=== PATIENT | female | born 1995 | race African-American/Black ===

== ENCOUNTER 2021-03-02 16:00 | Inpatient (IN) | payer OTHER ==
[2021-03-02 18:19] VITALS: BMI 49.4
[2021-03-02] MEDS ORDERED: BISMUTH SUBSALICYLATE 524 MG/30 ML PO PRN (23:14)
[2021-03-02] MEDS ORDERED: cloNIDine HCL 0.1 MG TABLET PO PRN (23:14)
[2021-03-02] MEDS ORDERED: ACETAMINOPHEN 325 MG TABLET (FP) PO PRN (23:14)
[2021-03-02] MEDS ORDERED: MAGNESIUM HYDROX 2400MG/30ML ORAL SUSPENSION 30 ML CUP PO PRN (23:14)
[2021-03-02] MEDS ORDERED: ONDANSETRON *ODT* 4 MG TABLET SL PRN (23:14)
[2021-03-02] MEDS ORDERED: NICOTINE POLACRILEX 2 MG GUM BUC PRN (23:14)
[2021-03-02] MEDS ORDERED: MENTHOL/PHENOL 1 EACH UD MM PRN (23:14)
[2021-03-02] MEDS ORDERED: MAG HYDROX/AL HYDROX/SIMETH 30 ML UNIT-DOSE CUP PO PRN (23:14)
[2021-03-02] MEDS ORDERED: MAGNESIUM CITRATE 300 ML BOTTLE PO PRN (23:14)
[2021-03-02] MEDS ORDERED: METHADONE HCL 10 MG TABLET (FOR DETOX USE ONLY) PO ONE (23:14)
[2021-03-03] MEDS: hydrOXYzine PAMOATE 25 MG CAPSULE (FP) PO SCH ×5 (05:35→22:37)
[2021-03-03] MEDS ORDERED: ALBUTEROL SO4 HFA INHALER IH PRN (09:31)
[2021-03-03] MEDS ORDERED: METHADONE HCL 5 MG TABLET (FOR DETOX USE ONLY) ONE (09:53)
[2021-03-03] MEDS ORDERED: METHADONE HCL 10 MG TABLET (FOR DETOX USE ONLY) ONE (09:53)
[2021-03-03] MEDS ORDERED: METHADONE (DETOX) 20 MG, METHADONE (DETOX) 5 MG PO ONE (10:00)
[2021-03-03] MEDS ORDERED: amLODIPine BESYLATE 5 MG TABLET (FP) PO SCH (10:00)
[2021-03-03] MEDS: SPIRONOLACTONE 25 MG TABLET PO SCH ×2 (10:44→22:37)
[2021-03-03] MEDS: DOCUSATE SODIUM 100 MG CAPSULE (FP) PO SCH (10:44)
[2021-03-03] MEDS: PRENATAL VITAMINS W/ FOLIC ACID TABLET (FP) PO SCH (10:44)
[2021-03-03] MEDS: METHOCARBAMOL 500 MG TABLET PO PRN ×2 (10:44→22:44)
[2021-03-03] MEDS: DULoxetine HCL 60 MG CAPSULE.DR PO SCH (15:01)
[2021-03-03] MEDS: MELATONIN 5 MG TABLETS PO SCH (22:37)
[2021-03-03] MEDS: THIAMINE HCL 100 MG TABLET (FP) PO SCH (22:37)
[2021-03-03] MEDS: QUEtiapine FUMARATE 50 MG TABLET PO SCH (22:37)
[2021-03-03] MEDS: MONTELUKAST NA 10 MG TABLET PO SCH (22:39)
[2021-03-04] MEDS: hydrOXYzine PAMOATE 25 MG CAPSULE (FP) PO SCH ×5 (06:13→22:22)
[2021-03-04] MEDS ORDERED: ATORVASTATIN PO SCH (10:00)
[2021-03-04] MEDS ORDERED: AMLODIPINE PO SCH (10:00)
[2021-03-04] MEDS ORDERED: [UNRECOGNIZED DRUG - OTHER] PO SCH (10:00)
[2021-03-04] MEDS ORDERED: amLODIPine BESYLATE 5 MG TABLET (FP) PO SCH (10:00)
[2021-03-04] MEDS ORDERED: METHADONE HCL 10 MG TABLET (FOR DETOX USE ONLY) PO ONE (10:00)
[2021-03-04] MEDS ORDERED: ATORVASTATIN CA 20 MG TABLET (FP) PO SCH (10:00)
[2021-03-04] MEDS: PRENATAL VITAMINS W/ FOLIC ACID TABLET (FP) PO SCH (10:36)
[2021-03-04] MEDS: DOCUSATE SODIUM 100 MG CAPSULE (FP) PO SCH (10:37)
[2021-03-04] MEDS: DULoxetine HCL 60 MG CAPSULE.DR PO SCH (10:37)
[2021-03-04] MEDS: PATIENT'S OWN MEDICATION (NON-FORMULARY) (Amlodipine Besylate/Benazepril [Amlodipine-Benaz PO SCH (10:37)
[2021-03-04] MEDS: SPIRONOLACTONE 25 MG TABLET PO SCH ×2 (10:37→22:21)
[2021-03-04] MEDS: METHOCARBAMOL 500 MG TABLET PO PRN ×2 (10:37→22:27)
[2021-03-04 11:08] LABS: HEMOGLOBIN 11.4 GM/dL (10.7-15.3); MCH 24.5 pg (25.7-33.7); MCHC 31.7 g/dl (32.0-36.0); MEAN CELL VOLUME 77.2 fl (80-96); MEAN PLT VOLUME 8.1 fl (7.5-11.1); PLATELET COUNT 387 10^3/uL (134-434); RBC 4.66 M/mm3 (3.60-5.2); WHITE BLOOD COUNT 8.4 K/mm3 (4.0-10.0)
[2021-03-04 11:15] LABS: ALBUMIN 3.5 g/dl (3.4-5.0); BLOOD UREA NITROGEN 11.2 mg/dL (7-18); CALCIUM 9.4 mg/dL (8.5-10.1)
[2021-03-04 11:19] LABS: CREATININE 0.7 mg/dL (0.55-1.3)
[2021-03-04 11:20] LABS: TOT PROT 7.6 g/dl (6.4-8.2)
[2021-03-04 11:23] LABS: BILIRUBIN,TOTAL 1.1 mg/dL (0.2-1)
[2021-03-04] MEDS ORDERED: PATIENT'S OWN MEDICATION (NON-FORMULARY) (Gabapentin [Gabapentin] 800 MG Tablet) PO SCH (14:00)
[2021-03-04] MEDS: THIAMINE HCL 100 MG TABLET (FP) PO SCH (22:21)
[2021-03-04] MEDS: QUEtiapine FUMARATE 50 MG TABLET PO SCH (22:22)
[2021-03-04] MEDS: MELATONIN 5 MG TABLETS PO SCH (22:22)
[2021-03-04] MEDS: MONTELUKAST NA 10 MG TABLET PO SCH (22:23)
[2021-03-05] MEDS: hydrOXYzine PAMOATE 25 MG CAPSULE (FP) PO SCH ×6 (06:35→22:33)
[2021-03-05] MEDS ORDERED: METHADONE HCL 10 MG TABLET (FOR DETOX USE ONLY) ONE (09:05)
[2021-03-05] MEDS ORDERED: METHADONE HCL 5 MG TABLET (FOR DETOX USE ONLY) ONE (09:05)
[2021-03-05] MEDS ORDERED: METHADONE (DETOX) 10 MG, METHADONE (DETOX) 5 MG PO ONE (10:00)
[2021-03-05] MEDS: DULoxetine HCL 60 MG CAPSULE.DR PO SCH (10:17)
[2021-03-05] MEDS: PRENATAL VITAMINS W/ FOLIC ACID TABLET (FP) PO SCH (10:17)
[2021-03-05] MEDS: PATIENT'S OWN MEDICATION (NON-FORMULARY) (Amlodipine Besylate/Benazepril [Amlodipine-Benaz PO SCH (10:17)
[2021-03-05] MEDS: DOCUSATE SODIUM 100 MG CAPSULE (FP) PO SCH (10:17)
[2021-03-05] MEDS: SPIRONOLACTONE 25 MG TABLET PO SCH ×2 (10:17→22:32)
[2021-03-05] MEDS: METHOCARBAMOL 500 MG TABLET PO PRN ×2 (10:20→22:35)
[2021-03-05] MEDS: ACETAMINOPHEN 325 MG TABLET (FP) PO PRN (12:42)
[2021-03-05] MEDS: IBUPROFEN 400 MG TABLET (FP) PO PRN (14:45)
[2021-03-05] MEDS: MELATONIN 5 MG TABLETS PO SCH (22:32)
[2021-03-05] MEDS: QUEtiapine FUMARATE 25 MG TABLET PO SCH (22:32)
[2021-03-05] MEDS: THIAMINE HCL 100 MG TABLET (FP) PO SCH (22:32)
[2021-03-05] MEDS: MONTELUKAST NA 10 MG TABLET PO SCH (22:32)
[2021-03-06] MEDS: hydrOXYzine PAMOATE 25 MG CAPSULE (FP) PO SCH ×5 (05:57→22:57)
[2021-03-06] MEDS: ACETAMINOPHEN 325 MG TABLET (FP) PO PRN ×2 (05:58→15:47)
[2021-03-06] MEDS ORDERED: METHADONE HCL 10 MG TABLET (FOR DETOX USE ONLY) PO ONE (10:00)
[2021-03-06] MEDS: PATIENT'S OWN MEDICATION (NON-FORMULARY) (Amlodipine Besylate/Benazepril [Amlodipine-Benaz PO SCH (10:45)
[2021-03-06] MEDS: SPIRONOLACTONE 25 MG TABLET PO SCH ×2 (10:45→22:57)
[2021-03-06] MEDS: METHOCARBAMOL 500 MG TABLET PO PRN ×2 (10:45→17:34)
[2021-03-06] MEDS: DOCUSATE SODIUM 100 MG CAPSULE (FP) PO SCH (10:45)
[2021-03-06] MEDS: PRENATAL VITAMINS W/ FOLIC ACID TABLET (FP) PO SCH (10:45)
[2021-03-06] MEDS: DULoxetine HCL 60 MG CAPSULE.DR PO SCH (10:45)
[2021-03-06] MEDS: IBUPROFEN 400 MG TABLET (FP) PO PRN (10:47)
[2021-03-06] MEDS: MONTELUKAST NA 10 MG TABLET PO SCH (22:57)
[2021-03-06] MEDS: THIAMINE HCL 100 MG TABLET (FP) PO SCH (22:57)
[2021-03-06] MEDS: QUEtiapine FUMARATE 25 MG TABLET PO SCH (22:57)
[2021-03-06] MEDS: MELATONIN 5 MG TABLETS PO SCH (22:58)
[2021-03-07] MEDS: METHOCARBAMOL 500 MG TABLET PO PRN (00:30)
[2021-03-07] MEDS: hydrOXYzine PAMOATE 25 MG CAPSULE (FP) PO SCH ×2 (05:42→09:00)
[2021-03-07] MEDS ORDERED: METHADONE HCL 5 MG TABLET (FOR DETOX USE ONLY) PO ONE (06:00)
[2021-03-07] MEDS: DOCUSATE SODIUM 100 MG CAPSULE (FP) PO SCH (09:00)
[2021-03-07] MEDS: DULoxetine HCL 60 MG CAPSULE.DR PO SCH (09:00)
[2021-03-07] MEDS: SPIRONOLACTONE 25 MG TABLET PO SCH (09:00)
[2021-03-07] MEDS: PRENATAL VITAMINS W/ FOLIC ACID TABLET (FP) PO SCH (09:00)
[2021-03-07] MEDS: PATIENT'S OWN MEDICATION (NON-FORMULARY) (Amlodipine Besylate/Benazepril [Amlodipine-Benaz PO SCH (09:00)
[2021-03-07 11:03] VITALS: BP 161/88; PULSE 85; TEMP 98.8
== END 2021-03-07 09:08 | disposition home or self-care (01) | DRG 897 ==
LOC: YASAS 16:00 → Y6N 22:36
PROVIDERS: ADMIT Allergy & Immunology; ATTEND Allergy & Immunology
PROC: HZ2ZZZZ Detoxification Services for Substance Abuse Treatment (ICD-10-PCS; principal; 2021-03-02)
DX: F11.23 Opioid dependence with withdrawal (principal); F33.1 Major depressive disorder, recurrent, moderate; Z68.42 Body mass index [BMI] 45.0-49.9, adult; F19.282 Other psychoactive substance dependence with psychoactive substance-induced sleep disorder; F19.24 Other psychoactive substance dependence with psychoactive substance-induced mood disorder; F60.3 Borderline personality disorder; F41.8 Other specified anxiety disorders; I10 Essential (primary) hypertension; K21.9 Gastro-esophageal reflux disease without esophagitis; K59.09 Other constipation; J45.909 Unspecified asthma, uncomplicated; G62.9 Polyneuropathy, unspecified; M54.5 Low back pain; G89.29 Other chronic pain; E28.2 Polycystic ovarian syndrome; E66.01 Morbid (severe) obesity due to excess calories; Z87.01 Personal history of pneumonia (recurrent); Z99.89 Dependence on other enabling machines and devices
CPT/HCPCS: 36415; 80053; 81025; 85027; 86780; C9803; U0003; U0005